=== PATIENT | female | born 1960 | race Caucasian/White ===

== ENCOUNTER 2019-07-22 06:00 | Day surgery (SDC) | payer OTHER | END 2019-07-22 10:55 | disposition home or self-care (01) | LOC: AMB-ENDOS 06:00 | DX: D12.8 Benign neoplasm of rectum (principal) ==

== ENCOUNTER 2021-11-15 05:34 | Day surgery (SDC) | payer OTHER | END 2021-11-15 09:40 | disposition home or self-care (01) | LOC: AMB-ENDOS 05:34 | PROVIDERS: ATTEND Colon & Rectal Surgery | DX: K62.89 Other specified diseases of anus and rectum (principal); Z20.822 Contact with and (suspected) exposure to COVID-19 ==